=== PATIENT | male | born 2000 | race Two or more races ===

== ENCOUNTER 2022-01-06 22:57 | Emergency (ER) | payer SELFPAY ==
[~2022-01-06] VITALS: Ht 167.6 cm; Wt 59.0 kg
--- NOTE | 2022-01-06 23:20 | NUR ---
PT BIBS C/O SYNCOPAL EPISODE UNWITNESSED, WOKE UP WITH BLOODY NOSE. PATIENT ALERT AND ORIENTED X3. AMBULATORY WITH NON LABORED BREATHING IN BED 11 ON MONITOR AWAITING MD MERA
[2022-01-06] MEDS ORDERED: IBUPROFEN 400 MG TABLET ONE (23:28)
--- NOTE | 2022-01-06 23:30 | NUR ---
IV LINE ESTABLISHED , RAC 18G
--- NOTE | 2022-01-06 23:31 | NUR ---
BLOOD COLLECTED AND SENT TO LAB
[2022-01-06] MEDS: IBUPROFEN 400 MG TABLET PO ONE (23:33)
[2022-01-06 23:37] LABS: BASOPHILS % (AUTO) 0.2 % (0.0-2.0); EOSINOPHILS % (AUTO) 1.9 % (0.0-6.0); HEMATOCRIT 45 % (39-51); HEMOGLOBIN 15.3 g/dL (13.5-17.5); LYMPHOCYTES # (AUTO) 1.7 K/uL (0.8-4.8); LYMPHOCYTES % (AUTO) 19.4 % (20.0-44.0); MEAN CORPUSCULAR HGB CONC 34 g/dl (31.0-36.0); MEAN CORPUSCULAR VOLUME 86 fL (80-96); MONOCYTES # (AUTO) 0.6 K/uL (0.1-1.30); MONOCYTES % (AUTO) 6.5 % (2.0-12.0); NEUTROPHILS # (AUTO) 6.2 K/uL (1.8-8.9); PLATELET COUNT (AUTO) 311 K/uL (150-450); RED BLOOD CELL COUNT(AUTO) 5.23 MIL/uL (4.5-6.0); WHITE BLOOD COUNT (AUTO) 8.7 K/uL (4.3-11.0)
--- NOTE | 2022-01-06 23:44 | NUR ---
PT TAKEN FOR CT SCAN
[2022-01-06 23:57] LABS: CALCIUM, SERUM 8.9 mg/dL (8.5-10.1); CARBON DIOXIDE 30 mmol/L (21-32); CHLORIDE 103 mmol/L (98-107); CREATININE 0.9 mg/dL (0.6-1.3); GLUCOSE 98 mg/dL (74-106); POTASSIUM 3.7 mmol/L (3.5-5.1); SODIUM SERUM 139 mmol/L (136-145); UREA NITROGEN, BLOOD 11 mg/dL (7-18)
[2022-01-07 00:12] LABS: ALANINE AMINOTRANSFERASE 27 U/L (12-78); ALKALINE PHOSPHATASE 150 U/L (46-116); ASPARTATE AMINOTRANSFERASE 23 U/L (15-37); BILIRUBIN,DIRECT 0.1 mg/dL (0.0-0.2); BILIRUBIN,TOTAL 0.7 mg/dL (0.2-1.0); TOTAL PROTEIN, SERUM 7.8 g/dL (6.4-8.2)
[2022-01-07 04:43] VITALS: BP 125/70
--- NOTE | 2022-01-07 04:43 | NUR ---
Patient discharged to home in stable condition. Written and verbal after care instructions given. Patient verbalizes understanding of instruction.
== END 2022-01-07 04:44 | disposition home or self-care (01) ==
LOC: ER 23:07
DX: M54.50 Low back pain, unspecified (principal); M25.512 Pain in left shoulder
CPT/HCPCS: 36415; 70450-TC; 70486-TC; 71045-TC; 73010-TC; 80048-TC; 80076-TC; 84484-TC; 85025-TC; 85730-TC